=== PATIENT | male | born 1965 | race Caucasian/White ===

== ENCOUNTER 2017-10-28 06:45 | Day surgery (SDC) | payer OTHER ==
[2017-10-28] MEDS ORDERED: PROPOFOL 40 ML (08:22)
== END 2017-10-28 11:18 | disposition home or self-care (01) ==
LOC: GIL 06:45
DX: Z12.11 Encounter for screening for malignant neoplasm of colon (principal); D12.2 Benign neoplasm of ascending colon; D12.5 Benign neoplasm of sigmoid colon; K57.90 Diverticulosis of intestine, part unspecified, without perforation or abscess without bleeding; K64.4 Residual hemorrhoidal skin tags
CPT/HCPCS: 45380; 88305

== ENCOUNTER 2018-05-12 09:21 | Day surgery (SDC) | payer OTHER ==
[2018-05-12] MEDS ORDERED: FENTAnyl 50 MCG/ML VIAL (10:29)
[2018-05-12] MEDS ORDERED: PROPOFOL 20 ML (10:29)
== END 2018-05-12 11:25 | disposition home or self-care (01) ==
LOC: GIL 09:21
DX: K29.70 Gastritis, unspecified, without bleeding (principal); K22.70 Barrett's esophagus without dysplasia; K44.9 Diaphragmatic hernia without obstruction or gangrene; K29.80 Duodenitis without bleeding
CPT/HCPCS: 43239; 88305

== ENCOUNTER 2019-02-08 09:28 | Inpatient (IN) | payer OTHER ==
[2019-02-08] MEDS: SOD CHLORIDE 0.9% 500 ML IV (11:05)
[2019-02-08] MEDS: ASPIRIN 325 MG TAB PO (11:05)
[2019-02-08 11:09] LABS: ADD MAN DIFF? NO
[2019-02-08 11:11] LABS: WHITE BLOOD COUNT 7.4 10^3/ul (4.8-10.8)
[2019-02-08 11:11] LABS: BASOPHILS % 0.3 % (0.0-2.0); HEMATOCRIT 39.7 % (42.0-52.0); HEMOGLOBIN 13.4 g/dl (14.0-18.0); LYMPHOCYTES # 0.9 10^3/ul (0.8-2.9); LYMPHOCYTES % 11.7 % (15.0-51.0); MEAN CORPUSCULAR HEMOGLOBIN 31.5 pg (29.0-33.0); MEAN CORPUSCULAR HGB CONC 33.8 g/dl (32.0-37.0); MEAN CORPUSCULAR VOLUME 93.2 fl (82.0-101.0); MONOCYTE # 0.3 10^3/ul (0.3-0.9); MONOCYTES % 3.7 % (0.0-11.0); NEUTROPHIL # 6.2 10^3/ul (1.6-7.5); NEUTROPHILS % 83.5 % (39.0-77.0); PLATELET COUNT 158 10^3/UL (140-415); RED BLOOD COUNT 4.26 10^6/ul (4.70-6.10); RED CELL DISTRIBUTION WIDTH 11.9 % (11.5-14.5)
[2019-02-08 11:31] LABS: INR 0.99; PROTIME 13.2 Sec (11.9-14.9)
[2019-02-08 11:32] LABS: PARTIAL THROMBOPLASTIN TIME 24.8 Sec (23.0-35.0)
[2019-02-08 11:34] LABS: ALANINE AMINOTRANSFERASE 27 IU/L (13-69); ALBUMIN 4.4 g/dl (3.3-4.9); ALBUMIN/GLOBULIN RATIO 1.62; ALKALINE PHOSPHATASE 73 IU/L (42-121); ANION GAP 9 (5-13); ASPARTATE AMINO TRANSFERASE 23 IU/L (15-46); BILIRUBIN,INDIRECT 0.2 mg/dl (0-1.1); BILIRUBIN,TOTAL 0.2 mg/dl (0.2-1.3); BLOOD UREA NITROGEN 15 mg/dl (7-20); CALCIUM 9.6 mg/dl (8.4-10.2); CARBON DIOXIDE 26 mmol/L (21-31); CHLORIDE 101 mmol/L (97-110); CREATINE KINASE 126 IU/L (23-200); CREATININE 0.68 mg/dl (0.61-1.24); Estimated GFR > 60 mL/min (>60); GLUCOSE 263 mg/dl (70-220); POTASSIUM 4.4 mmol/L (3.5-5.1); SODIUM 136 mmol/L (135-144); TOTAL PROTEIN 7.1 g/dl (6.1-8.1)
[2019-02-08 11:46] LABS: B-TYPE NATRIURETIC PEPTIDE 127 PG/ML (0-125); CK-MB 1.27 ng/ml (0.0-2.4); TROPONIN-I < 0.012 ng/ml (0.000-0.120)
[2019-02-08] MEDS: HYDROmorphONE 1 MG/ML SYG IV (12:01)
[2019-02-08] MEDS: LIDOCAINE/MYLANTA 40 ML BTL PO (12:01)
[2019-02-08] MEDS: BELLADONNA/PHENOBARBITAL TAB PO (12:01)
[2019-02-08] MEDS: ONDANSETRON 4 MG INJ IV ×3 (12:01→16:41)
[2019-02-08] MEDS ORDERED: ONDANSETRON 4 MG INJ IV (13:00)
[2019-02-08] MEDS ORDERED: ACETAMINOPHEN 325 MG TAB PO ×2 (13:00→16:00)
[2019-02-08] MEDS: morphine 4 MG/ML VIAL IV ×2 (13:06→15:29)
[2019-02-08] MEDS: IOHEXOL 100 ML (13:36)
[2019-02-08] MEDS: SOD CHLORIDE 0.9% 100 ML (13:37)
[2019-02-08] MEDS ORDERED: HYDROCODONE/APAP (5/325) TAB PO (16:00)
[2019-02-08] MEDS ORDERED: NACL 0.9% 3 ML SYG IV (16:00)
[2019-02-08] MEDS: APIXABAN 5 MG TABLET PO (16:00)
[2019-02-08] MEDS ORDERED: CARISOPRODOL 350 MG TAB PO (16:00)
[2019-02-08] MEDS: morphine 2 MG INJ IV ×3 (16:46→21:46)
[2019-02-08] MEDS: METOCLOPRAMIDE 5 MG TAB PO (17:18)
[2019-02-08 17:21] LABS: CREATINE KINASE 92 IU/L (23-200)
[2019-02-08 17:35] LABS: CK INDEX 1.1; CK-MB 1.04 ng/ml (0.0-2.4); TROPONIN-I < 0.012 ng/ml (0.000-0.120)
[2019-02-08] MEDS: HYDROCODONE/APAP (10/325) TAB PO (18:54)
[2019-02-08] MEDS: MONTELUKAST 10 MG TAB PO (20:45)
[2019-02-08] MEDS: ATORVASTATIN 20 MG TAB PO (20:46)
[2019-02-08] MEDS: METOPROLOL 25 MG TAB PO (20:46)
[2019-02-08] MEDS: FAMOTIDINE 20 MG TAB PO (20:46)
[2019-02-08] MEDS: DOCUSATE SODIUM 100 MG CAP PO (23:54)
[2019-02-09 00:23] LABS: CREATINE KINASE 95 IU/L (23-200)
[2019-02-09 00:36] LABS: CK INDEX 1.4; CK-MB 1.34 ng/ml (0.0-2.4); TROPONIN-I < 0.012 ng/ml (0.000-0.120)
[2019-02-09] MEDS: morphine 2 MG INJ IV ×8 (01:46→23:49)
[2019-02-09] MEDS: HYDROCODONE/APAP (10/325) TAB PO (02:55)
[2019-02-09 05:39] LABS: ADD MAN DIFF? NO
[2019-02-09 05:42] LABS: WHITE BLOOD COUNT 8.3 10^3/ul (4.8-10.8)
[2019-02-09 05:42] LABS: BASOPHILS % 0.4 % (0.0-2.0); EOSINOPHILS # 0.1 10^3/ul (0.0-0.5); EOSINOPHILS % 1.6 % (0.0-7.0); HEMATOCRIT 41.5 % (42.0-52.0); HEMOGLOBIN 13.8 g/dl (14.0-18.0); LYMPHOCYTES # 3.1 10^3/ul (0.8-2.9); LYMPHOCYTES % 37.2 % (15.0-51.0); MEAN CORPUSCULAR HGB CONC 33.3 g/dl (32.0-37.0); MEAN CORPUSCULAR VOLUME 93.3 fl (82.0-101.0); MEAN PLATELET VOLUME 9.6 fl (7.4-10.4); MONOCYTE # 0.7 10^3/ul (0.3-0.9); MONOCYTES % 7.9 % (0.0-11.0); NEUTROPHIL # 4.3 10^3/ul (1.6-7.5); NEUTROPHILS % 51.8 % (39.0-77.0); PLATELET COUNT 160 10^3/UL (140-415); RED BLOOD COUNT 4.45 10^6/ul (4.70-6.10)
[2019-02-09] MEDS: METOCLOPRAMIDE 5 MG TAB PO ×3 (05:47→18:08)
[2019-02-09 06:19] LABS: ANION GAP 7 (5-13); BLOOD UREA NITROGEN 16 mg/dl (7-20); CALCIUM 9.3 mg/dl (8.4-10.2); CARBON DIOXIDE 30 mmol/L (21-31); CHLORIDE 101 mmol/L (97-110); CHOL/HDL RATIO 3.8 RATIO; CHOLESTEROL 201 mg/dl (100-200); CREATININE 0.91 mg/dl (0.61-1.24); Estimated GFR > 60 mL/min (>60); GLUCOSE 137 mg/dl (70-220); HDL CHOLESTEROL 52 mg/dl (28-71); LDL CHOLESTEROL,CALCULATED 99 mg/dl; MAGNESIUM 2.3 mg/dl (1.7-2.5); PHOSPHORUS 3.9 mg/dl (2.5-4.9); POTASSIUM 4.3 mmol/L (3.5-5.1); SODIUM 138 mmol/L (135-144); TRIGLYCERIDES 249 mg/dl (0-149)
[2019-02-09] MEDS: ESCITALOPRAM 10 MG TAB PO (08:33)
[2019-02-09] MEDS: APIXABAN 5 MG TABLET PO (08:33)
[2019-02-09] MEDS: FAMOTIDINE 20 MG TAB PO ×2 (08:33→20:15)
[2019-02-09] MEDS: METOPROLOL 25 MG TAB PO ×2 (08:33→20:14)
[2019-02-09] MEDS: REGADENOSON 0.4 MG/5 ML SYG (10:15)
[2019-02-09] MEDS: HYDROCODONE/APAP (5/325) TAB PO (12:15)
[2019-02-09] MEDS: BISACODYL (EC) 5 MG TAB PO (12:48)
[2019-02-09] MEDS: POLYETHYLENE GLYCOL 3350 119 GM POWDER PO (18:08)
[2019-02-09] MEDS: MAGNESIUM CITRATE 300 ML BTL PO (18:11)
[2019-02-09] MEDS: ATORVASTATIN 20 MG TAB PO (20:14)
[2019-02-09] MEDS: MONTELUKAST 10 MG TAB PO (20:14)
[2019-02-10] MEDS: morphine 2 MG INJ IV ×3 (04:26→13:47)
[2019-02-10] MEDS: POLYETHYLENE GLYCOL 3350 119 GM POWDER PO (05:28)
[2019-02-10] MEDS: HYDROCODONE/APAP (10/325) TAB PO (06:35)
[2019-02-10] MEDS: METOCLOPRAMIDE 5 MG TAB PO ×3 (06:51→17:30)
[2019-02-10] MEDS: FAMOTIDINE 20 MG TAB PO (08:31)
[2019-02-10] MEDS: ESCITALOPRAM 10 MG TAB PO (08:31)
[2019-02-10] MEDS: METOPROLOL 25 MG TAB PO ×2 (08:32→20:03)
[2019-02-10] MEDS: BISACODYL (EC) 5 MG TAB PO (08:32)
[2019-02-10] MEDS: morphine 4 MG/ML VIAL IV ×2 (09:55→20:05)
[2019-02-10] MEDS ORDERED: EPHEDrine SULFATE 50 MG/5 ML SYG IV (16:30)
[2019-02-10] MEDS ORDERED: IPRATROPIUM (NEB) 0.5 MG/2.5 ML AMP HHN (16:30)
[2019-02-10] MEDS ORDERED: TRIMETHOBENZAMIDE 100 MG/ML VIAL IM (16:30)
[2019-02-10] MEDS ORDERED: MIDAZOLAM 1 MG/ML 2 ML INJ IV (16:30)
[2019-02-10] MEDS ORDERED: HYDROmorphONE 1 MG/5 ML IV SYRINGE IV ×2 (16:30)
[2019-02-10] MEDS ORDERED: ALBUTEROL 0.083% (NEB) 2.5 MG/3 ML AMP HHN (16:30)
[2019-02-10] MEDS ORDERED: ONDANSETRON 4 MG INJ IV (16:30)
[2019-02-10] MEDS ORDERED: DIPHENHYDRAMINE 50 MG INJ IV (16:30)
[2019-02-10] MEDS ORDERED: hydrALAzine 20 MG INJ IV (16:30)
[2019-02-10] MEDS ORDERED: FENTAnyl 50 MCG/ML VIAL IV ×2 (16:30)
[2019-02-10] MEDS ORDERED: OXYCODONE/ACETAMINOPHEN (5/325) TAB PO (16:30)
[2019-02-10] MEDS ORDERED: LABETALOL HCL 20MG INJ IV (16:30)
[2019-02-10] MEDS ORDERED: MEPERIDINE 25 MG INJ IV (16:30)
[2019-02-10] MEDS: FENTAnyl 50 MCG/ML VIAL IV (17:46)
[2019-02-10] MEDS: HYDROmorphONE 1 MG/5 ML IV SYRINGE IV (17:46)
[2019-02-10] MEDS: OXYCODONE/ACETAMINOPHEN (5/325) TAB PO (17:47)
[2019-02-10] MEDS: PANTOPRAZOLE (EC) 40 MG TAB PO ×2 (18:00→20:04)
[2019-02-10] MEDS: PROPOFOL 60 ML (19:16)
[2019-02-10] MEDS: LIDOCAINE 100 MG SYRINGE (19:17)
[2019-02-10] MEDS: FENTAnyl 50 MCG/ML VIAL (19:18)
[2019-02-10] MEDS: ATORVASTATIN 20 MG TAB PO (20:03)
[2019-02-10] MEDS: SUCRALFATE 1 GM TAB PO (20:03)
[2019-02-10] MEDS: MONTELUKAST 10 MG TAB PO (20:04)
[2019-02-10] MEDS: HYDROCODONE/APAP (5/325) TAB PO (21:51)
[2019-02-11] MEDS: morphine 4 MG/ML VIAL IV ×6 (00:01→22:37)
[2019-02-11] MEDS: HYDROCODONE/APAP (5/325) TAB PO ×2 (02:42→17:24)
[2019-02-11] MEDS: METOCLOPRAMIDE 5 MG TAB PO ×3 (06:37→17:23)
[2019-02-11] MEDS: SUCRALFATE 1 GM TAB PO ×4 (08:46→21:15)
[2019-02-11] MEDS: APIXABAN 5 MG TABLET PO (08:47)
[2019-02-11] MEDS: ESCITALOPRAM 10 MG TAB PO (08:47)
[2019-02-11] MEDS: METOPROLOL 25 MG TAB PO ×2 (08:48→21:15)
[2019-02-11] MEDS: NITROGLYCERIN (SL) 0.4 MG TAB SL (08:48)
[2019-02-11] MEDS: HYDROCODONE/APAP (10/325) TAB PO (08:48)
[2019-02-11] MEDS: DIAZEPAM 2 MG TAB PO ×2 (13:36→21:15)
[2019-02-11] MEDS: MONTELUKAST 10 MG TAB PO (21:15)
[2019-02-12] MEDS: LIDOCAINE/MYLANTA 40 ML BTL PO ×2 (01:19→07:42)
[2019-02-12] MEDS: morphine 4 MG/ML VIAL IV ×4 (02:13→13:27)
[2019-02-12] MEDS: KETOROLAC 30 MG INJ IV ×2 (03:22→07:52)
[2019-02-12 06:00] LABS: ANION GAP 10 (5-13); BLOOD UREA NITROGEN 20 mg/dl (7-20); CALCIUM 10.1 mg/dl (8.4-10.2); CARBON DIOXIDE 26 mmol/L (21-31); CHLORIDE 103 mmol/L (97-110); CREATININE 0.94 mg/dl (0.61-1.24); Estimated GFR > 60 mL/min (>60); GLUCOSE 131 mg/dl (70-220); MAGNESIUM 2.4 mg/dl (1.7-2.5); PHOSPHORUS 3.6 mg/dl (2.5-4.9); POTASSIUM 4.6 mmol/L (3.5-5.1); SODIUM 139 mmol/L (135-144)
[2019-02-12 06:04] LABS: CREATINE KINASE 46 IU/L (23-200)
[2019-02-12] MEDS: METOCLOPRAMIDE 5 MG TAB PO ×2 (06:29→11:49)
[2019-02-12] MEDS: ONDANSETRON 4 MG INJ IV (07:42)
[2019-02-12] MEDS: SUCRALFATE 1 GM TAB PO ×2 (07:53→13:15)
[2019-02-12] MEDS: DIAZEPAM 2 MG TAB PO ×2 (07:53→13:15)
[2019-02-12] MEDS: APIXABAN 5 MG TABLET PO (08:31)
[2019-02-12] MEDS: ESCITALOPRAM 10 MG TAB PO (08:31)
[2019-02-12] MEDS: METOPROLOL 25 MG TAB PO (08:32)
[2019-02-12 11:14] LABS: LIPASE 109 U/L (23-300)
[2019-02-12 11:17] LABS: TROPONIN-I < 0.012 ng/ml (0.000-0.120)
[2019-02-12] MEDS: HYDROCODONE/APAP (10/325) TAB PO (11:46)
== END 2019-02-12 16:47 | disposition home or self-care (01) | DRG 556 ==
LOC: E/R 09:28 → 6WM 12:51
PROC: 0DB98ZX Excision of Duodenum, Via Natural or Artificial Opening Endoscopic, Diagnostic (ICD-10-PCS; principal; 2019-02-10 15:50)
PROC: 0DB68ZX Excision of Stomach, Via Natural or Artificial Opening Endoscopic, Diagnostic (ICD-10-PCS; 2019-02-10 15:50)
PROC: 0DB58ZX Excision of Esophagus, Via Natural or Artificial Opening Endoscopic, Diagnostic (ICD-10-PCS; 2019-02-10 15:50)
PROC: 0D5K8ZZ Destruction of Ascending Colon, Via Natural or Artificial Opening Endoscopic (ICD-10-PCS; 2019-02-10 15:50)
PROC: 0D5H8ZZ Destruction of Cecum, Via Natural or Artificial Opening Endoscopic (ICD-10-PCS; 2019-02-10 15:50)
PROC: 0DBK8ZX Excision of Ascending Colon, Via Natural or Artificial Opening Endoscopic, Diagnostic (ICD-10-PCS; 2019-02-10 15:50)
PROC: 0DBH8ZX Excision of Cecum, Via Natural or Artificial Opening Endoscopic, Diagnostic (ICD-10-PCS; 2019-02-10 15:50)
DX: M60.9 Myositis, unspecified (principal); I50.40 Unspecified combined systolic (congestive) and diastolic (congestive) heart failure; I11.0 Hypertensive heart disease with heart failure; K31.84 Gastroparesis; R07.89 Other chest pain; F32.9 Major depressive disorder, single episode, unspecified; F41.9 Anxiety disorder, unspecified; E78.5 Hyperlipidemia, unspecified; D64.9 Anemia, unspecified; R73.9 Hyperglycemia, unspecified; K22.70 Barrett's esophagus without dysplasia; M54.12 Radiculopathy, cervical region; K29.80 Duodenitis without bleeding; K44.9 Diaphragmatic hernia without obstruction or gangrene; K29.70 Gastritis, unspecified, without bleeding; K21.0 Gastro-esophageal reflux disease with esophagitis; D12.2 Benign neoplasm of ascending colon; D12.0 Benign neoplasm of cecum; K64.8 Other hemorrhoids; Z79.01 Long term (current) use of anticoagulants; Z79.02 Long term (current) use of antithrombotics/antiplatelets; Z86.010 Personal history of colon polyps; Z86.711 Personal history of pulmonary embolism; Z86.718 Personal history of other venous thrombosis and embolism; Z90.411 Acquired partial absence of pancreas
CPT/HCPCS: 36415; 71045; 71275; 78452; 80048; 80053; 80061; 82550; 82553; 83690; 83735; 83880; 84100; 84484; 85025; 85610; 85730; 88305; 88312; 88313; 93005; 93017; 93306; 93931; 96374; 96375; 99285-25; G0378